=== PATIENT | male | born 1965 | race Caucasian/White ===

== ENCOUNTER 2021-06-30 11:58 | Emergency (ER) | payer OTHER, BC ==
[~2021-06-30] VITALS: Ht 172.7 cm; Wt 74.8 kg
[~2021-06-30 11:58] MED LIST: ADVIL200 MG PO; BABY ASPIRIN81 MG PO; NORCO 5-325 TA1 EACH PO
== END 2021-06-30 14:02 | disposition home or self-care (01) ==
LOC: ED 11:58
DX: S20.212A Contusion of left front wall of thorax, initial encounter (principal); W00.0XXA Fall on same level due to ice and snow, initial encounter; Y99.0 Civilian activity done for income or pay; F17.200 Nicotine dependence, unspecified, uncomplicated; Z79.899 Other long term (current) drug therapy; Z79.82 Long term (current) use of aspirin
CPT/HCPCS: 71101; 99283-25